=== PATIENT | female | born 1980 | race Two or more races ===

== ENCOUNTER 2016-08-21 23:26 | Observation (INO) | payer SELFPAY ==
[~2016-08-21] VITALS: Ht 162.6 cm; Wt 78.1 kg
[2016-08-22 00:16] LABS: ASPARTATE AMINO TRANSFERASE 15 U/L (15-37); BLOOD UREA NITROGEN 17 mg/dL (7-18)
[2016-08-22] MEDS ORDERED: MORPHINE SULFATE 4 MG/ML, 1ML ONE (00:25)
[2016-08-22] MEDS ORDERED: ONDANSETRON 2MG/ML, 2ML ONE ×3 (00:25→04:37)
[2016-08-22] MEDS ORDERED: ONDANSETRON 2MG/ML, 2ML IVPush ONE (00:30)
[2016-08-22] MEDS ORDERED: MORPHINE SULFATE 4 MG/ML, 1ML IVPush PRN (00:30)
[2016-08-22] MEDS ORDERED: SODIUM CHLORIDE FLUSH 10ML SYR IVF ONE (00:30)
[2016-08-22] MEDS ORDERED: SODIUM CHLORIDE 0.9% 1,000ML IVBOLUS ONE (00:30)
[2016-08-22] MEDS ORDERED: OMNIPAQUE 350 MG/ML, 100ML BOTTLE ONE (02:08)
[2016-08-22] MEDS ORDERED: FENTANYL PF 250 MCG/5ML ONE (03:18)
[2016-08-22] MEDS ORDERED: BUPIVACAINE/PF-EPI 0.5% 1:200K ONE (03:29)
[2016-08-22] MEDS ORDERED: BUPIVACAINE/PF-EPI 0.25% 1:200K ONE (03:29)
[2016-08-22] MEDS ORDERED: SUCCINYLCHOLINE 20 MG/ML, 10ML ONE (03:31)
[2016-08-22] MEDS ORDERED: ROCURONIUM 10 MG/ML ONE (03:31)
[2016-08-22] MEDS ORDERED: CEFOTETAN 2 GM ONE (03:31)
[2016-08-22] MEDS ORDERED: PROPOFOL 10 MG/ML, 20ML ONE (03:31)
[2016-08-22] MEDS ORDERED: KETOROLAC 30 MG/1 ML ONE (03:31)
[2016-08-22] MEDS ORDERED: BUPIVACAINE/PF-EPI 0.5% 1:200K INFIL ONE (03:45)
[2016-08-22] MEDS ORDERED: D5%-0.45NACL+KCL 20MEQ 1,000 ML IV SCH (04:25)
[2016-08-22] MEDS ORDERED: ONDANSETRON 2MG/ML, 2ML IVPush PRN ×2 (04:30→05:00)
[2016-08-22] MEDS ORDERED: ONDANSETRON 4 MG TABLET PO PRN (04:30)
[2016-08-22] MEDS ORDERED: morphine SULFATE 10 MG/ML, 1ML IVPush PRN (04:30)
[2016-08-22] MEDS ORDERED: OXYcodone/APAP 7.5/325MG TABLET PO PRN (04:30)
[2016-08-22] MEDS ORDERED: CEFOTETAN PMX 1GM/50ML 50 ML IVPB SCH (04:30)
[2016-08-22] MEDS ORDERED: PROMETHAZINE 25 MG/ML, 1ML IM PRN (04:30)
[2016-08-22] MEDS ORDERED: OXYcodone 5 MG/5 ML ORAL.SOL UDC ONE (04:37)
[2016-08-22] MEDS ORDERED: FENTANYL PF 100 MCG/2ML ONE (04:37)
[2016-08-22] MEDS: FENTANYL PF 100 MCG/2ML IV PRN ×2 (04:42→04:52)
[2016-08-22] MEDS ORDERED: HYDROmorphone 1 MG/ML, 1ML IV PRN (05:00)
[2016-08-22] MEDS ORDERED: OXYcodone 5 MG/5 ML ORAL.SOL UDC PO PRN (05:00)
[2016-08-22 05:59] VITALS: BP 115/79
[2016-08-22 08:24] VITALS: BP 114/74
[2016-08-22 12:56] VITALS: BP 103/65
[2016-08-22] MEDS ORDERED: OXYC-223 PO (17:01)
[2016-08-22] MEDS ORDERED: ONDA4TAB7 PO (17:02)
== END 2016-08-22 17:53 | disposition home or self-care (01) ==
LOC: ED 23:59 → EDIP 08-22 02:34 → INTOOBSV 08-22 02:34 → 4NOR 08-22 05:29 → UNDODISIN 08-22 17:53
PROVIDERS: ADMIT Surgery; ATTEND Surgery
DX: K35.89 Other acute appendicitis (principal); Z90.49 Acquired absence of other specified parts of digestive tract
CPT/HCPCS: 36415; 44970; 74177; 80053; 81001; 83690; 84703; 85025; 87086; 88304; 96361; 96374; 96375; 99285; C1729; G0378; J0330; J1885; J2405; J2550; J2704; J3010; J3480; J7030; Q9967; S0074

== ENCOUNTER 2017-05-07 08:48 | Emergency (ER) | payer SELFPAY ==
[~2017-05-07] VITALS: Ht 154.9 cm; Wt 76.9 kg
[~2017-05-07 08:48] MED LIST: ONDA4TAB7 PO; OXYC-306 PO
[2017-05-07] MEDS ORDERED: SODIUM CHLORIDE 0.9% 1,000ML IVBOLUS ONE (09:30)
[2017-05-07] MEDS ORDERED: SODIUM CHLORIDE FLUSH 10ML SYR IVF ONE (09:30)
[2017-05-07 09:42] LABS: BASOPHILS # (AUTO) 0.02 x10^3/uL (0-0.1); BASOPHILS % (AUTO) 0 % (0-1); EOSINOPHILS # (AUTO) 0.05 x10^3/uL (0-0.4); EOSINOPHILS % (AUTO) 1 % (1-7); LYMPHOCYTES # (AUTO) 1.88 x10^3/uL (1-3.4); LYMPHOCYTES % (AUTO) 34 % (22-44); MD NO; MEAN CORPUSCULAR HEMOGLOBIN 31.2 pg (27.0-34.8); MEAN CORPUSCULAR HGB CONC 33.5 g/dL (32.4-35.8); MEAN CORPUSCULAR VOLUME 93.1 fL (80-100); MEAN PLATELET VOLUME 9.7 fL (7.4-10.4); MONOCYTES # (AUTO) 0.39 x10^3/uL (0.2-0.8); MONOCYTES % (AUTO) 7 % (2-9); NEUTROPHILS # (AUTO) 3.21 x10^3/uL (1.8-6.8); NEUTROPHILS % (AUTO) 58 % (42-75); PLATELET COUNT 252 x10^3/uL (130-400); RED BLOOD COUNT 4.51 x10^6/uL (3.82-5.3); RED CELL DISTRIBUTION WIDTH 13.1 % (9.6-15.2)
[2017-05-07 11:24] VITALS: BP 124/94
== END 2017-05-07 11:29 | disposition home or self-care (01) ==
LOC: ED 10:26
DX: O26.891 Other specified pregnancy related conditions, first trimester (principal); M54.5 Low back pain; Z3A.01 Less than 8 weeks gestation of pregnancy
CPT/HCPCS: 36415; 76801; 84702; 85025; 86901; 96360; 99285; J7030

== ENCOUNTER 2017-05-09 10:10 | Emergency (ER) | payer OTHER ==
[~2017-05-09] VITALS: Ht 157.5 cm; Wt 76.7 kg
[2017-05-09 10:14] VITALS: BP 133/80
[2017-05-09] MEDS ORDERED: SODIUM CHLORIDE 0.9% 1,000ML IVBOLUS ONE (11:00)
[2017-05-09 11:13] LABS: BASOPHILS # (AUTO) 0.06 x10^3/uL (0-0.1); BASOPHILS % (AUTO) 1 % (0-1); EOSINOPHILS # (AUTO) 0.06 x10^3/uL (0-0.4); EOSINOPHILS % (AUTO) 1 % (1-7); LYMPHOCYTES # (AUTO) 2.19 x10^3/uL (1-3.4); LYMPHOCYTES % (AUTO) 26 % (22-44); MD SCAN; MEAN CORPUSCULAR HEMOGLOBIN 31.7 pg (27.0-34.8); MEAN CORPUSCULAR HGB CONC 33.6 g/dL (32.4-35.8); MEAN CORPUSCULAR VOLUME 94.2 fL (80-100); MEAN PLATELET VOLUME 9.6 fL (7.4-10.4); MONOCYTES # (AUTO) 0.48 x10^3/uL (0.2-0.8); MONOCYTES % (AUTO) 6 % (2-9); NEUTROPHILS # (AUTO) 5.74 x10^3/uL (1.8-6.8); NEUTROPHILS % (AUTO) 67 % (42-75); PLATELET COUNT 253 x10^3/uL (130-400); RED BLOOD COUNT 4.49 x10^6/uL (3.82-5.3); RED CELL DISTRIBUTION WIDTH 12.7 % (9.6-15.2)
[2017-05-09 11:22] LABS: ALANINE AMINOTRANSFERASE 43 U/L (12-78); ALBUMIN 3.9 g/dL (3.4-5.0); ANION GAP 9 mmol/L (5-15); CALCIUM 8.9 mg/dL (8.5-10.1); CHLORIDE 105 mmol/L (98-107); CREATININE 0.62 mg/dL (0.55-1.02)
[2017-05-09 11:39] LABS: ALKALINE PHOSPHATASE 74 U/L (45-117); BILIRUBIN,TOTAL 0.5 mg/dL (0.2-1.0); TOTAL PROTEIN 8.1 g/dL (6.4-8.2)
[2017-05-09 12:45] LABS: CULTURE INDICATED? NO; MICROSCOPIC AUTO
== END 2017-05-09 13:16 | disposition home or self-care (01) ==
LOC: ED 13:05
DX: O03.4 Incomplete spontaneous abortion without complication (principal); Z3A.01 Less than 8 weeks gestation of pregnancy; Z90.49 Acquired absence of other specified parts of digestive tract
CPT/HCPCS: 36415; 76801; 80053; 81001; 84702; 85025; 86901; 96360; 96361; 99285; J7030